=== PATIENT | female | born 1990 | race Asian ===

== ENCOUNTER 2022-03-29 17:22 | Emergency (ER) | payer SELFPAY ==
[2022-03-29] MEDS ORDERED: Diphtheria,Pertussis(Acell),Tetanus Vaccine 0.5 ML Syringe IM ONE (17:49)
[2022-03-29] MEDS ORDERED: Lidocaine 1% PF 2 ML SDV INJECT ONE (17:49)
[2022-03-29] MEDS ORDERED: Benzocaine 20% Topical Spray UD MUCMEM ONE (18:58)
[2022-03-29] MEDS ORDERED: Lidocaine 2% Viscous Solution 15 ML UD PO ONE (18:58)
[2022-03-29] MEDS ORDERED: Amoxicillin/Clavulanate K 875-125 MG Tab PO ONE (18:58)
== END 2022-03-29 19:30 | disposition home or self-care (01) ==
LOC: MW.ED 17:22
DX: S61.012A Laceration without foreign body of left thumb without damage to nail, initial encounter (principal); K04.7 Periapical abscess without sinus; Z23 Encounter for immunization; X58.XXXA Exposure to other specified factors, initial encounter
CPT/HCPCS: 12001; 90471; 90715; 99282; A9270; 99283

== ENCOUNTER 2022-04-07 11:24 | Emergency (ER) | payer SELFPAY | END 2022-04-07 12:26 | disposition home or self-care (01) | LOC: MW.ED 11:24 | DX: S61.012D Laceration without foreign body of left thumb without damage to nail, subsequent encounter (principal); Z48.02 Encounter for removal of sutures | CPT/HCPCS: 99281 ==